=== PATIENT | male | born 1980 | race Native Hawaiian/Other Pacific Islander ===

== ENCOUNTER 2024-12-20 11:19 | Inpatient (IN) | payer SELFPAY ==
[~2024-12-20] VITALS: Ht 182.9 cm; Wt 80.0 kg
--- NOTE | 2024-12-20 11:54 | ED.PDOC ---
HPI (NEURO) HPI Comments This is a 44 year old male presenting to the ED with chief complaint of numbness/tingling. Patient reports that he noticed intermittent left arm tingling last week that developed into intermittent left leg tingling a week ago. Patient relays that it has slowly become worse over time and with associated left arm and leg numbness and dizziness. Patient states that his mother has history of multiple strokes in the past, worried that his symptoms could be due to one. Patient denies any chest pain, SOB, headache, N/V, blurred vision, or syncope. Chief Complaint: Left Sided Weakness Time Seen by MD: 11:50 Reviewed Notes: Nurses Notes, Medications, Allergies Information Source: Patient Mode of Arrival: Ambulatory Severity: Moderate Dizziness/Weakness Severity: Unable to do activities Timing: Weeks Duration: Since onset Prehospital treatment: None Headache Location: Generalized Numbness Location: (L) Arm, (L) Leg Onset: At rest Circumstances: Spontaneous History of: None Associated Signs and Symptoms: Numbness Past Medical History PAST MEDICAL HISTORY: Denies Surgical History: Denies all surgeries Family History Family History: Family hx of stroke Social History Smoker: Non-Smoker Alcohol: Denies ETOH Use Drugs: Denies Drug Use Lives In: Home Constitutional: denies: chills, diaphoresis, fatigue, fever, malaise, sweats, weakness, others EENTM: denies: blurred vision, double vision, ear bleeding, ear discharge, ear drainage, ear pain, ear ringing, eye pain, eye redness, hearing loss, mouth pain, mouth swelling, nasal discharge, nose bleeding, nose congestion, nose pain, photophobia, tearing, throat pain, throat swelling, voice changes, others Respiratory: denies: cough, hemoptysis, orthopnea, SOB at rest, shortness of breath, SOB with excertion, stridor, wheezing, others Cardiovascular: denies: chest pain, dizzy spells, diaphoresis, Dyspnea on exe rtion, edema, irregular heart beat, left arm pain, lightheadedness, palpitations, PND, syncope, others Gastrointestinal: denies: abdomen distended, abdominal pain, blood streaked bowels, constipated, diarrhea, dysphagia, difficulty swallowing, hematemesis, melena, nausea, poor appetite, poor fluid intake, rectal bleeding, rectal pain, vomiting, others Genitourinary: denies: burning, dysuria, flank pain, frequency, hematuria, incontinence, penile discharge, penile sore, pain, testicle pain, testicle swelling, urgency, others Neurological: reports: dizziness, numbness, tingling; denies: fainting, headache, left sided numbness, left sided weakness, paresthesia, pre-existing deficit, right sided numbness, right sided weakness, seizure, speech problems, tremors, weakness, others Musculoskeletal: denies: back pain, gout, joint pain, joint swelling, muscle pain, muscle stiffness, neck pain, others Integumetry: denies: bruises, change in color, change in hair/nails, dryness, laceration, lesions, lumps, rash, wounds, others Allergic/Immunocompromised: denies: Difficulty Healing, Frequent Infections, Hives, Itching, others Hematologic/Lymphatic: denies: anemia, blood clots, easy bleeding, easy bruising, swollen glands, others Endocrine: denies: excessive hunger, excessive sweating, excessive thirst, excessive urination, flushing, intolerance to cold, intolerance to heat, unexplained weight gain, unexplained weight loss, others Psychiatric: denies: anxiety, bipolar disorder, depression, hopeless, panic disorder, schizophrenia, sleepless, suicidal, others All Other Systems: Reviewed and Negative Physical Exam General Appearance: No Apparent Distress, Normal HEENT: Normal ENT Inspection, Pharynx Normal, TMs Normal Neck: Full Range of Motion, Non-Tender, Normal, Normal Inspection Respiratory: Chest Non-Tender, Lungs Clear, No Accessory Muscle Use, No Respiratory Distress, Normal Breath Sounds Cardiovascular: No Edema, No JVD, No Murmur, No Gallop, Normal Peripheral Pulses, Regular Rate/Rhythm Breast Exam: Deferred Gastrointestinal: No Organomegaly, Non Tender, No Pulsatile Mass, Normal Bowel Sounds, Soft Genitalia: Deferred Pelvic: Deferred Rectal: Deferred Extremities: No calf tenderness, Normal capillary refill, Normal inspection, Normal range of motion, Non-tender, No pedal edema Musculoskeletal : Apperance: Normal Neurologic: Alert, conduit bender II-XII nml as Tested, No Motor Deficits, Normal Affect, Normal Mood, No Sensory Deficits Cerebellar Function: Normal Reflexes: Normal Skin: Dry, Normal Color, Warm Lymphatic: No Adenopathy Was a procedure done? Was a procedure done?: No Differential Diagnosis (SZ) CVA: CVA, TIA X-Ray, Labs, Meds, VS Vital Signs Date Time Temp Pulse Resp B/P (MAP) Pulse Ox O2 Delivery O2 Flow Rate FiO2 12/20/24 11:23 97.7 86 16 126/88 99 97.7 Lab Test 12/20/24 13:25 12/20/24 12:05 Range/Units Troponin I High Sensitivity < 3 L < 3 L </=54 ng/L White Blood Count 7.2 4.4-10.8 10^3/uL Red Blood Count 4.87 4.5-5.90 10^6/uL Hemoglobin 14.9 13.5-17.5 g/dL Hematocrit 44.0 41.0-53.0 % Mean Corpuscular Volume 90.4 80.0-100.0 fL Mean Corpuscular Hemoglobin 30.6 28.0-32.0 pg Mean Corpuscular Hemoglobin Concent 33.8 32.0-36.0 g/dL Red Cell Distribution Width 14.3 11.8-14.3 % Platelet Count 260 140-450 10^3/uL Mean Platelet Volume 6.6 L 6.9-10.8 fL Neutrophils (%) (Auto) 64.7 37.0-80.0 % Lymphocytes (%) (Auto) 26.6 10.0-50.0 % Monocytes (%) (Auto) 7.3 0.0-12.0 % Eosinophils (%) (Auto) 0.9 0.0-7.0 % Basophils (%) (Auto) 0.5 0.0-2.0 % Neutrophils # (Auto) 4.7 1.6-8.6 10 ^3/uL Lymphocytes # (Auto) 1.9 0.4-5.4 10 ^3/uL Monocytes # (Auto) 0.5 0-1.3 10 ^3/uL Eosinophils # (Auto) 0.1 0-0.8 10 ^3/uL Basophils # (Auto) 0 0-0.2 10 ^3/uL Nucleated Red Blood Cells 0.1 % Sodium Level 143 136-145 mmol/L Potassium Level 3.5 3.5-5.1 mmol/L Chloride Level 107 98-107 mmol/L Carbon Dioxide Level 27 20-31 mmol/L Anion Gap 9 5-15 Blood Urea Nitrogen 9 9-23 mg/dL Creatinine 0.89 0.700-1.30 mg/dL Glomerular Filtration Rate Calc 109 >90 mL/min BUN/Creatinine Ratio 10.1 10.0-20.0 Serum Glucose 96 74-106 mg/dL Calcium Level 9.3 8.7-10.4 mg/dL Time of 1ST Reevaluation: 12:48 Reevaluation 1ST: Unchanged Patient Education/Counseling: Diagnosis, Treatment Family Education/Counseling: No Family Present Departure 1 Departure Time of Disposition: 14:58 (Patient with concern for CVA. Chest x-ray and CT scan was benign. We will get labs are benign. We will admit patient for further workup and expert consultation) Impression: Primary Impression: Left arm weakness Additional Impression: Left leg weakness Disposition: ADMITTED INPATIENT Admit to: Tele Condition: Guarded Critical Care Note Critical Care Time?: No Stability Stability form required: No Heart Score Heart Score: Heart Score Response (Comments) Value History N/A 0 EKG N/A 0 Age N/A 0 Risk Factors N/A 0 Troponin N/A 0 Total 0 I personally scribed for BEBE RANGEL MD ([email or web address]) on 12/20/24 at 11:54. Electronically submitted by Major Cabrera ([email or web address]). BEBE RANGEL MD Dec 20, 2024 11:54
--- NOTE | 2024-12-20 12:21 | DVH ---
EXAM: CT HEAD WITHOUT CONTRAST INDICATION: numbness TECHNIQUE: CT of the head without intravenous contrast. Radiation Dose : 1. Head: CT Dose: CTDI volume is 53.6 mGy. Dose-length product is 968.9 mGy*cm The dose indicators for CT are the volume Computed Tomography (CT) Dose Index (CTDIvol) and the Dose Length Product (DLP), and are measured in units of mGy and mGy-cm, respectively. These indicators are not patient dose, but values generated from the CT scanner acquisition factors. The report includes radiation exposure data for exposures received during this examination. COMPARISON: None FINDINGS: There is no evidence of acute intracranial hemorrhage, extra-axial collection, mass effect, midline shift, herniation or hydrocephalus. The ventricles, sulci and cisterns are age appropriate. The kate-white differentiation is intact. The visualized paranasal sinuses and mastoid air cells are clear. The surrounding soft tissues and osseous structures are unremarkable. IMPRESSION: No acute intracranial abnormality. Radiation optimization: All CT scans at this facility use at least one of these dose optimization techniques: automated exposure control mA and/or kV adjustment per patient size (includes targeted exams where dose is matched to clinical indication) or iterative reconstruction.
--- NOTE | 2024-12-20 12:24 | DVH ---
AP portable chest CLINICAL INDICATION: numbness FINDINGS: Heart size is normal. Aorta tortuous. No infiltrates or effusions. IMPRESSION: 1. No acute disease
[2024-12-20 12:32] LABS: Hematocrit 44.0 % (41.0-53.0); Hemoglobin 14.9 g/dL (13.5-17.5); Mean Corpuscular Hemoglobin 30.6 pg (28.0-32.0); Mean Corpuscular Volume 90.4 fL (80.0-100.0); Nucleated Red Blood Cells % 0.1 %
[2024-12-20 12:34] LABS: Sodium 143 mmol/L (136-145)
[2024-12-20 12:35] LABS: Anion Gap 9 (5-15); Calcium 9.3 mg/dL (8.7-10.4); Carbon Dioxide 27 mmol/L (20-31)
[2024-12-20 12:40] LABS: BUN/Creatinine Ratio 10.1 (10.0-20.0); Blood Urea Nitrogen 9 mg/dL (9-23); Glucose 96 mg/dL (74-106)
[2024-12-20 12:42] LABS: Chloride 107 mmol/L (98-107); Potassium 3.5 mmol/L (3.5-5.1)
[2024-12-20] MEDS ORDERED: NITROGLYCERIN 0.4 MG SL TAB SL PRN (17:00)
[2024-12-20] MEDS ORDERED: ACETAMINOPHEN 325 MG TAB PO PRN (17:00)
[2024-12-20] MEDS ORDERED: ONDANSETRON HCL 4 MG/2 ML VIAL IV PRN (17:00)
[2024-12-20] MEDS ORDERED: HYDROcodone-ACET 5/325MG TAB PO PRN (17:00)
[2024-12-20] MEDS ORDERED: DOCUSATE SOD 100 MG CAP PO PRN (17:00)
--- NOTE | 2024-12-20 17:39 | DVHHP2 ---
History of Present Illness Reason for Visit: left sided numbness/tingling History of Present Illness Franco Cassidy Junior is a 44-year-old male with no significant past medical history, who came to the hospital due to numbness and tingling to his left arm and leg. Patient states this started last Friday with mild intermittent n umbness and tingling in his left arm. Through the week the numbness and tingling progressed to his left leg. He also began experiencing dizziness when turning his head. He came to the hospital today due to the numbness and tingling significantly worsening in his left arm and leg. Patient states he has not been in to see a primary care provider in over 10 years. He also states his Mother had multiple stroke and from a stroke. Past Surgical History: None Smoke: <1 pack per day (Vape) ALCOHOL: none (quite February 2024) Lives: with Family Domestic Violence: Neg Review of Systems Constitutional: No: Fever, Chills, Sweats, Weakness, Malaise, Other Eyes: No: Pain, Vision change, Conjunctivae inflammation, Eyelid inflammation, Other, Redness ENT: No: Ear pain, Ear discharge, Nose pain, Nose discharge, Nose congestion, M outh pain, Mouth swelling, Throat pain, Throat swelling, Other Respiratory: No: Cough, Dry, Shortness of breath, SOB with excertion, Wheezing, Hemoptysis, Pleuritic Pain, Sputum, Wheezing, Other Cardiovascular: No: Chest Pain, Palpitations, Orthopnea, Paroxysmal Noc. Dyspnea, Edema, Lt Headedness, Other Gastrointestinal: No: Nausea, Vomiting, Abdominal Pain, Diarrhea, Constipation, Melena, Hematochezia, Other Genitourinary: No Dysuria, No Frequency, No Incontinence, No Hematuria, No Retention, No Other Musculoskeletal: No: other, neck pain, shoulder pain, arm pain, back pain, hand pain, leg pain, foot pain Skin: No: Rash, Lesions, Jaundice, Bruising, Other Neurological: Numbness (Paresthesia of the left arm and leg), Other (Dizziness when turning head); No: Weakness, Incoordination, Change in speech, Confusion, Seizures Allergies: Coded Allergies: NO KNOWN ALLERGIES (Unverified , 12/20/24) Exam Vital Signs Vital Signs Date Time Temp Pulse Resp B/P (MAP) Pulse Ox O2 Delivery O2 Flow Rate FiO2 11/10/25 15:50 98.0 67 17 112/70 (84) 100 98.0 General Appearance: Alert, Oriented X3, Cooperative, mild distress HEENT: Atraumatic, PERRLA Respiratory: Clear to auscultation, Normal air movement Cardiovascular: Regular rate, Normal S1, Normal S2 Abdominal: Normal bowel sounds, Soft, No tenderness, No hepatospenomegaly Extremities: No clubbing, No cyanosis, No edema, Normal pulses, Other (equal strength in bilateral upper and lower extremities) Skin: No rashes, No breakdown, No significant lesion Neuro: Normal gait, Normal speech, Strength at 5/5 X4 ext Psych/Mental Status: Mental status NL, Mood NL Labs/Xrays Labs Test 12/20/24 15:35 12/20/24 12:05 Range/Units Troponin I High Sensitivity < 3 L </=54 ng/L White Blood Count 7.2 4.4-10.8 10^3/uL Red Blood Count 4.87 4.5-5.90 10^6/uL Hemoglobin 14.9 13.5-17.5 g/dL Hematocrit 44.0 41.0-53.0 % Mean Corpuscular Volume 90.4 80.0-100.0 fL Mean Corpuscular Hemoglobin 30.6 28.0-32.0 pg Mean Corpuscular Hemoglobin Concent 33.8 32.0-36.0 g/dL Red Cell Distribution Width 14.3 11.8-14.3 % Platelet Count 260 140-450 10^3/uL Mean Platelet Volume 6.6 L 6.9-10.8 fL Neutrophils (%) (Auto) 64.7 37.0-80.0 % Lymphocytes (%) (Auto) 26.6 10.0-50.0 % Monocytes (%) (Auto) 7.3 0.0-12.0 % Eosinophils (%) (Auto) 0.9 0.0-7.0 % Basophils (%) (Auto) 0.5 0.0-2.0 % Neutrophils # (Auto) 4.7 1.6-8.6 10 ^3/uL Lymphocytes # (Auto) 1.9 0.4-5.4 10 ^3/uL Monocytes # (Auto) 0.5 0-1.3 10 ^3/uL Eosinophils # (Auto) 0.1 0-0.8 10 ^3/uL Basophils # (Auto) 0 0-0.2 10 ^3/uL Nucleated Red Blood Cells 0.1 % Sodium Level 143 136-145 mmol/L Potassium Level 3.5 3.5-5.1 mmol/L Chloride Level 107 98-107 mmol/L Carbon Dioxide Level 27 20-31 mmol/L Anion Gap 9 5-15 Blood Urea Nitrogen 9 9-23 mg/dL Creatinine 0.89 0.700-1.30 mg/dL Glomerular Filtration Rate Calc 109 >90 mL/min BUN/Creatinine Ratio 10.1 10.0-20.0 Serum Glucose 96 74-106 mg/dL Calcium Level 9.3 8.7-10.4 mg/dL AP portable chest FINDINGS: Heart size is normal. Aorta tortuous. No infiltrates or effusions. IMPRESSION: 1. No acute disease EXAM: CT HEAD WITHOUT CONTRAST FINDINGS: There is no evidence of acute intracranial hemorrhage, extra-axial collection, mass effect, midline shift, herniation or hydrocephalus. The ventricles, sulci and cisterns are age appropriate. The kate-white differentiation is intact. The visualized paranasal sinuses and mastoid air cells are clear. The surrounding soft tissues and osseous structures are unremarkable. IMPRESSION: No acute intracranial abnormality. SEPSIS Sepsis Screen Date sepsis recognized/suspect: Dec 20, 2024 Time Sepsis recognized/suspect: 1123 Recent Procedure: No On Antibiotic Therapy: No Respiratory Rate >20: No Heart Rate >90: No Temp<36 C (96.8 F) or >38.3 C: No SBP <90 or MAP <65 mmHG: No New Acute Mental Status Change: No Is the patient on CPAP, BIPAP,: No Physician Orders Urinalysis (12/20/24 11:48) Chest Portable (12/20/24 11:48) Head Without Contrast (12/20/24 11:48) Electrocardigram (12/20/24 11:48) Electrocardigram (12/20/24 12:48) Electrocardigram (12/20/24 14:48) Admit (12/20/24 16:50) Code Status (12/20/24 16:50) Hydrocodone-Acet 5/325mg Tab ([place] 5/32 (12/20/24 17:00) Ondansetron Hcl (Zofran) (12/20/24 17:00) Docusate Sodium Capsule (Colace Capsule) (12/20/24 17:00) Complete Blood Count (12/21/24 04:00) Comprehensive Metabolic Panel (12/21/24 04:00) Carotid Duplx W Color Dop (12/20/24 16:50) Condition: Serious (12/20/24 16:50) Acetaminophen Tablet (Tylenol Tablet) (12/20/24 17:00) Nitroglycerin Sublingual (Ntrostat Subli (12/20/24 17:00) Morphine Sulfate Injection (12/20/24 17:00) Stat Ekg For Chest Pain (12/20/24 16:50) Notify Of Changes From Base (12/20/24 16:50) Slipcover Cutter For 24 Hours (12/20/24 16:50) Emergency Dysrhythmia Protocol (12/20/24 16:50) Rhythm Strips Once Every Shift (12/20/24 16:50) Oxygen By Nasal Cannula (12/20/24 16:50) * Neurology Consult (12/20/24 16:50) Vital Signs Date Time Temp Pulse Resp B/P (MAP) Pulse Ox O2 Delivery O2 Flow Rate FiO2 12/20/24 15:50 98.0 67 17 112/70 (84) 100 98.0 12/20/24 11:23 97.7 86 16 126/88 99 97.7 Laboratory Tests Test 12/20/24 12:05 White Blood Count 7.2 10^3/uL (4.4-10.8) Assessment/Plan Assessment/Plan Assessment: Possible stroke, Possible TIA, Paresthesia of the left arm and leg, Plan: Admit to Tele, Neurology consult, Consider MRI of brain, CT of cervical neck, Start ASA, Lipid panel, Plan discussed with: Patient My Orders Orders - ABHINAV VARGAS Procedure Category Date Status Time Admit ADMIT 12/20/24 Transmitted 16:50 Code Status CODE 12/20/24 Transmitted 16:50 Hydrocodone-Acet PHA 12/20/24 Transmitted 5/325mg Tab ([place] 17:00 Ondansetron Hcl PHA 12/20/24 Transmitted (Zofran) 17:00 Docusate Sodium PHA 12/20/24 Transmitted Capsule (Colace 17:00 Complete Blood Count LAB 12/21/24 Verified 04:00 Comprehensive LAB 12/21/24 Verified Metabolic Panel 04:00 Carotid Duplx W Color US 12/20/24 Transmitted DOP 16:50 Condition: Serious [facility] 12/20/24 Transmitted 16:50 Acetaminophen Tablet [facility] 12/20/24 Transmitted (Tylenol Tablet) 17:00 Nitroglycerin [facility] 12/20/24 Verified Sublingual (Ntrostat 17:00 Morphine Sulfate PHA 12/20/24 Transmitted Injection 17:00 Stat Ekg For Chest [facility] 12/20/24 Transmitted Pain 16:50 Notify Of Changes [facility] 12/20/24 Transmitted From Base 16:50 Slipcover Cutter For [facility] 12/20/24 Transmitted 24 Hours 16:50 Emergency Dysrhythmia [facility] 12/20/24 Transmitted Protocol 16:50 Rhythm Strips Once [facility] 12/20/24 Transmitted Every Shift 16:50 Oxygen By Nasal RT 12/20/24 Transmitted Cannula 16:50 * Neurology Consult CONS 12/20/24 Transmitted 16:50 Date of Service: Dec 20, 2024 Billing Provider: ABHINAV VARGAS Common Visit Codes: [id number] INP/OBS CARE (MOD) ABHINAV VARGAS Dec 20, 2024 17:39
[2024-12-20] MEDS ORDERED: MORPHINE SULFATE 4 MG/ML SYR/VIAL IV PRN (18:00)
[2024-12-20 18:24] LABS: Triglycerides 83 mg/dL (< 150)
[2024-12-20 18:26] LABS: Cholesterol 158 mg/dL (< 200); HDL Cholesterol 49 mg/dL (40-59)
--- NOTE | 2024-12-20 18:51 | DVH ---
Carotid Duplex Date: 12/20/2024 06:13 PM Clinical History: Possible stroke Comparison: None Technique: Duplex Doppler evaluation of the extracranial carotid and vertebral arteries including color Doppler and spectral/pulsed waveform analysis was performed. Findings: velocites are within normal limits IMPRESSION: No hemodynamically significant stenosis noted in the right carotid system. No hemodynamically significant stenosis noted in the left carotid system. Reference: Radiology 2003; [id number]
--- NOTE | 2024-12-20 20:54 | DVHINCON2 ---
Date of service: Dec 20, 2024 Referring Physician Sandi Reason for Consultation Possible stroke History of Present Illness Mr. Cassidy is a 44 years old right-handed gentleman otherwise healthy, the patient came to the hospital with a chief company of intermittent of numbness. At this time, he is alert and fully oriented, he provided the following history Since beginning of 12/20/2024, he has several spells of event in that he has numbness starting in the left brachium, which gradually spread towards distally and in about 1 hour, reach the whole hand and all the fingers. Today he had one event that spread to the left thigh, and then the whole lower extremity into the foot in about 30-40 minutes. There was no associated confusion, twitching/movement symptoms along with the numbness. He denies a history of seizure, stroke, he denies a history of traumatic brain injury, intracranial infection, or family history of seizure disorder CBC, 12/20/2024: Unremarkable BMP 12/20/2024: Unremarkable TG/HDL/LDL/HDL, 12/20/2024: 83/158/103/49 Carotid Doppler, 12/20/2024: No hemodynamically significant stenosis noted in the right carotid system. No hemodynamically significant stenosis noted in the left carotid system. CT head, 12/20/2024: No acute intracranial abnormality Past Medical History No major medical problems Past Surgical History No surgeries Family History Stroke Social History He was tobacco smoke, but no history of drug/alcohol abuse Allergies: Coded Allergies: NO KNOWN ALLERGIES (Unverified , 12/20/24) Current Medications Current Medications Medications (Trade) Dose Ordered Sig/Yu Route PRN Reason Start Time Stop Time Status Last Admin Acetaminophen/ Hydrocodone Bitart ([place] 5/325MG Tab) 1 tab Q4HP PRN PO MODERATE PAIN (4-6 PAIN SCALE) 12/20/24 17:00 Ondansetron HCl (Zofran) 4 mg Q4HP PRN IV NAUSEA / VOMITING 12/20/24 17:00 Docusate Sodium (Colace Capsule) 100 mg BIDPRN PRN PO FOR CONSTIPATION 12/20/24 17:00 Acetaminophen (Tylenol Tablet) 650 mg Q6HP PRN PO PAIN SCALE 1-3 OR TEMP>100.4 12/20/24 17:00 Nitroglycerin (Ntrostat Sublingual) 0.4 mg Q5MINP PRN SL FOR CHEST PAIN 12/20/24 17:00 Morphine Sulfate 2 mg Q30M PRN IV FOR CHEST PAIN 12/20/24 18:00 Aspirin 81 mg DAILY PO 12/21/24 10:00 Review of Systems As above, the other systems are negative, he drives, he works Vital Signs Vital Signs Date Time Temp Pulse Resp B/P (MAP) Pulse Ox O2 Delivery O2 Flow Rate FiO2 12/20/24 15:50 98.0 67 17 112/70 (84) 100 98.0 Physical Exam GENERAL EXAM: General: the patient is well developed and nourished. No acute distress. HEENT: Normocephalic, neck is supple, no carotid bruits. No mass. RESPIRATORY: Normal respiratory effort with symmetrical lung expansion. Lungs clear to auscultation. CARDIOVASCULAR: Regular rate and rhythm with no murmurs. S1, S2. ABDOMEN: Soft, nontender, normal bowel sound NEUROLOGICAL: MENTAL STATUS: Awake and alert. Oriented to person, place, time and general circumstances. Able to give personal history. SPEECH, LANGUAGE, HIGHER CORTICAL FUNCTION: no aphasia or dysathria. CRANIAL NERVES: #2: Intact visual brito to confrontation. The optic discs were sharp. #3,4,6: Pupils are equal, round and reactive. EOMs full and conjugate. No nystagmus. #5: Facial sensation intact in all three divisions bilaterally. Mandibular strength intact. #7: Facial muscles symmetrical and strength intact. #8: Hearing grossly normal to voice. #9,10: Uvula and soft palate rise in the midline. Swallow and voice are normal. #11: Trapezius and sternomastoid strength intact bilaterally. #12: Tongue midline. No fasciculations or atrophy. SENSATION: Sensation to touch and pinprick is normal. MOTOR: Normal tone in the upper and lower extremity. Normal muscle bulk. No fasciculations. No abnormal movements or posturing. Muscle strength of the major groups in the upper extremities is 5/5. Muscle strength of the major groups in the lower extremities is 5/5. REFLEXES: Deep tendon reflexes normal and symmetrical. No pathological reflexes. CEREBELLAR/COORDINATION: Finger to nose and heel to harmon are normal bilateral ly. GAIT/STATION: With normal limits Labs/Diagnostic Data Labs Test 12/20/24 15:35 12/20/24 13:25 12/20/24 12:05 Range/Units Troponin I High Sensitivity < 3 L </=54 ng/L Triglycerides Level 83 < 150 mg/dL Cholesterol Level 158 < 200 mg/dL LDL Cholesterol 103 H < 100 mg/dL HDL Cholesterol 49 40-59 mg/dL White Blood Count 7.2 4.4-10.8 10^3/uL Red Blood Count 4.87 4.5-5.90 10^6/uL Hemoglobin 14.9 13.5-17.5 g/dL Hematocrit 44.0 41.0-53.0 % Mean Corpuscular Volume 90.4 80.0-100.0 fL Mean Corpuscular Hemoglobin 30.6 28.0-32.0 pg Mean Corpuscular Hemoglobin Concent 33.8 32.0-36.0 g/dL Red Cell Distribution Width 14.3 11.8-14.3 % Platelet Count 260 140-450 10^3/uL Mean Platelet Volume 6.6 L 6.9-10.8 fL Neutrophils (%) (Auto) 64.7 37.0-80.0 % Lymphocytes (%) (Auto) 26.6 10.0-50.0 % Monocytes (%) (Auto) 7.3 0.0-12.0 % Eosinophils (%) (Auto) 0.9 0.0-7.0 % Basophils (%) (Auto) 0.5 0.0-2.0 % Neutrophils # (Auto) 4.7 1.6-8.6 10 ^3/uL Lymphocytes # (Auto) 1.9 0.4-5.4 10 ^3/uL Monocytes # (Auto) 0.5 0-1.3 10 ^3/uL Eosinophils # (Auto) 0.1 0-0.8 10 ^3/uL Basophils # (Auto) 0 0-0.2 10 ^3/uL Nucleated Red Blood Cells 0.1 % Sodium Level 143 136-145 mmol/L Potassium Level 3.5 3.5-5.1 mmol/L Chloride Level 107 98-107 mmol/L Carbon Dioxide Level 27 20-31 mmol/L Anion Gap 9 5-15 Blood Urea Nitrogen 9 9-23 mg/dL Creatinine 0.89 0.700-1.30 mg/dL Glomerular Filtration Rate Calc 109 >90 mL/min BUN/Creatinine Ratio 10.1 10.0-20.0 Serum Glucose 96 74-106 mg/dL Calcium Level 9.3 8.7-10.4 mg/dL Assessment Paresthesia Rule out partial simple seizure, though with atypical features TIA, less likely Plan/Recommendation Monitoring Supportive treatment Telemetry UDS EEG MR brain scan A trial of Keppra 500 mg b.i.d. He has been advised that he needs to stopped driving if he has altered mental status along with event has convulsion with loss of consciousness I have spent time discussing with him and his Prognosis poor This medical document was created using an electronic medical record system with [employer] dictation system. Although this document has been carefully reviewed, there may still be some phonetic and typographical errors. These areas are purely typographical due to imperfections of the software programs, and do not reflect any compromise in the patient's medical care. Plan discussed with: Patient, Spouse, Other JOEY SALCEDO MD Dec 20, 2024 20:54
[2024-12-20] MEDS ORDERED: LORazepam 2MG/ML-1ML VIAL IV PRN ×2 (22:00)
[2024-12-20 23:35] VITALS: RESP 18
[2024-12-20] MEDS: levETIRAcetam 500 MG TAB PO ONE (23:41)
[2024-12-21] VITALS (9 sets, daily range): BP systolic 94–120; BP diastolic 55–85; PULSE 53–90; RESP 16–20; TEMP 97.6–98; O2SAT 96–100
--- NOTE | 2024-12-21 04:37 | DVH ---
EXAM: CT CERVICAL WITHOUT CONTRAST INDICATION: Paresthesia of the left arm and leg EXAM DATE: 12/21/2024 02:16 AM COMPARISON: None. TECHNIQUE: Multiple axial CT images of the cervical spine were obtained using bone algorithm. Sagittal and coronal reformatting was done. Bone and soft tissue windows were reviewed. Radiation Dose Information: CT Dose: CTDI volume is 6.96 mGy. Dose-length product is 209.05 mGy*cm FINDINGS: The cervical alignment is intact. Reversal of the cervical lordosis. No acute cervical spine fracture is identified. The vertebral body heights are intact. No suspicious osseous lesions are identified. Multilevel intervertebral disc space narrowing. No significant spinal stenosis. Multilevel neural foraminal stenosis. There is no prevertebral soft tissue swelling. The lung apices are clear. IMPRESSION: 1. No evidence of acute cervical spine fracture or traumatic malalignment. 2. Multilevel degenerative changes of the cervical spine.
[2024-12-21 06:41] LABS: Hematocrit 39.6 % (41.0-53.0); Hemoglobin 13.6 g/dL (13.5-17.5); Mean Corpuscular Hemoglobin 30.8 pg (28.0-32.0); Mean Corpuscular Volume 89.8 fL (80.0-100.0); Nucleated Red Blood Cells % 0.1 %
[2024-12-21 06:59] LABS: Alanine Aminotransferase 15 U/L (7-40); Alkaline Phosphatase 59 U/L (46-116); Anion Gap 10 (5-15); BUN/Creatinine Ratio 14.4 (10.0-20.0); Blood Urea Nitrogen 13 mg/dL (9-23); Calcium 9.3 mg/dL (8.7-10.4); Carbon Dioxide 28 mmol/L (20-31); Chloride 106 mmol/L (98-107); Glucose 81 mg/dL (74-106); Potassium 4.0 mmol/L (3.5-5.1); Sodium 144 mmol/L (136-145); Total Protein 7.0 g/dL (5.7-8.2)
[2024-12-21 07:00] LABS: Albumin 4.2 g/dL (3.2-4.8); Bilirubin, Total 0.6 mg/dL (0.2-1.0)
--- NOTE | 2024-12-21 08:52 | DVHPN2 ---
Progress Note - Dictate Date Seen: Dec 21, 2024 Medical Necessity Reason Pt with a Central, PICC or Fol: No Subjective Mr. Cassidy is a 44 years old right-handed gentleman otherwise healthy, the patient came to the hospital with a chief company of intermittent of numbness. I have seen examined the patient, talked his nurse, he had fine, At this time, he is alert and fully oriented, he provided the following history The case was discussed with Dr. Salcedo, our in-house radiologist CBC, 12/20/2024: Unremarkable BMP 12/20/2024: Unremarkable TG/HDL/LDL/HDL, 12/20/2024: 83/158/103/49 Carotid Doppler, 12/20/2024: No hemodynamically significant stenosis noted in the right carotid system. No hemodynamically significant stenosis noted in the left carotid system. CT head, 12/20/2024: No acute intracranial abnormality MRI head, 12/21/24: 1. No evidence of acute intracranial abnormality. 2. Small areas of hypointense gradient echo signal in the right parietal lobe and adjacent to the atrium of the right lateral ventricle, likely sequela of prior small focal areas of hemorrhage. No evidence of acute hemorrhage on this exam or on the recent CT in these locations. 3. Small foci of FLAIR hyperintense signal in the bilateral frontal lobe subcortical white matter, are nonspecific, may be seen with mild chronic small-vessel ischemic disease, migraine headaches, or other vascular phenomena. Other etiologies, including demyelinating disease would be less likely but not completely excluded in the appropriate clinical setting. 4. Additional findings as described above. (Small thin focus of hypointense gradient echo signal along a right parietal lobe sulcus with concomitant FLAIR hyperintense signal, may be due to hemosiderin deposition from prior Small hemorrhage) vital signs Vital Sign Date Time Temp Pulse Resp B/P (MAP) Pulse Ox O2 Delivery O2 Flow Rate FiO2 12/21/24 05:00 97.7 63 19 94/55 (68) 99 97.7 12/21/24 01:18 Room Air* 0 21 medications Current Medications Medications Dose Ordered Sig/Yu Route Start Time Stop Time Status Last Admin Dose Admin Acetaminophen/ Hydrocodone Bitart 1 tab Q4HP PRN PO 12/20/24 17:00 Ondansetron HCl 4 mg Q4HP PRN IV 12/20/24 17:00 Docusate Sodium 100 mg BIDPRN PRN PO 12/20/24 17:00 Acetaminophen 650 mg Q6HP PRN PO 12/20/24 17:00 Nitroglycerin 0.4 mg Q5MINP PRN SL 12/20/24 17:00 Morphine Sulfate 2 mg Q30M PRN IV 12/20/24 18:00 Aspirin 81 mg DAILY PO 12/21/24 10:00 Lorazepam 1 mg ONCE PRN IV 12/20/24 22:00 Lorazepam 1 mg Q5MINP PRN IV 12/20/24 22:00 Levetiracetam 500 mg BID PO 12/21/24 10:00 objective General: the patient is well developed and nourished. No acute distress. MENTAL STATUS: Awake and alert. Oriented to person, place, time and general circumstances. Able to give personal history. SPEECH, LANGUAGE, HIGHER CORTICAL FUNCTION: no aphasia or dysathria. CRANIAL NERVES: Pupils are equal, round and reactive. EOMs full and conjugate. No nystagmus. Facial sensation intact in all three divisions bilaterally. Mandibular strength intact. Facial muscles symmetrical and strength intact. Tongue midline. No fasciculations or atrophy. SENSATION: Sensation to touch and pinprick is normal. MOTOR: Normal tone in the upper and lower extremity. Normal muscle bulk. No fasciculations. No abnormal movements or posturing. Muscle strength of the major groups in the upper extremities is 5/5. REFLEXES: Deep tendon reflexes normal and symmetrical. No pathological reflexes. CEREBELLAR/COORDINATION: Finger to nose and heel to harmon are normal bilaterally. GAIT/STATION: With normal limits laboratory and microbiology Laboratory Tests 12/21/24 05:22 Test 12/21/24 05:22 Range/Units Serum Glucose 81 74-106 mg/dL Problem List Paresthesia, likely partial simple seizure, though with atypical features Assessment/Plan Monitoring Supportive treatment Telemetry UDS EEG Keppra 500 mg b.i.d. Social service Re: Financial evaluate He has been advised that he needs to stopped driving if he has altered mental status along with event has convulsion with loss of consciousness I have spent time discussing with him and his This medical document was created using an electronic medical record system with [employer] system. Although this document has been carefully reviewed, there may still be some phonetic and typographical errors. These areas are purely typographical due to imperfections of the software programs, and do not reflect any compromise in the patient's medical care. Prognosis poor Plan discussed with: Patient, Other Total Time (mins): 55 JOEY SALCEDO MD Dec 21, 2024 08:52
--- NOTE | 2024-12-21 09:16 | DVH ---
CLINICAL INDICATION: Seizure. Transient ischemic attack. COMPARISON: CT HEAD WITHOUT CONTRAST on DOS: 12/20/24 TECHNIQUE: Multisequence multiplanar MRI images of the brain were obtained without contrast. FINDINGS: No acute infarct or hemorrhage. No mass or midline shift. Small thin focus of hypointense gradient echo signal along a right parietal lobe sulcus with concomitant FLAIR hyperintense signal, may be due to hemosiderin deposition from prior Small hemorrhage. There is also a small round focus of gradient echo hypointense signal adjacent to the atrium of the right lateral ventricle, also possibly sequelae of prior hemorrhage. No evidence of acute hemorrhage. There are a few small foci of T2/FLAIR hyperintense signal in the bilateral frontal lobe subcortical white matter measuring up to 3 mm, may be due to mild chronic small-vessel ischemic disease, migraine headaches, or other vascular phenomena. Ventricles and sulci are within normal limits. Basal cisterns are patent. Cerebellum, brainstem, and midline structures are within normal limits. Mild mucosal thickening of the paranasal sinuses. Orbits are grossly unremarkable. IMPRESSION: 1. No evidence of acute intracranial abnormality. 2. Small areas of hypointense gradient echo signal in the right parietal lobe and adjacent to the atrium of the right lateral ventricle, likely sequela of prior small focal areas of hemorrhage. No evidence of acute hemorrhage on this exam or on the recent CT in these locations. 3. Small foci of FLAIR hyperintense signal in the bilateral frontal lobe subcortical white matter, are nonspecific, may be seen with mild chronic small- vessel ischemic disease, migraine headaches, or other vascular phenomena. Other etiologies, including demyelinating disease would be less likely but not completely excluded in the appropriate clinical setting. 4. Additional findings as described above.
[2024-12-21 10:01] LABS: Urine Protein, UAD Negative (Negative)
[2024-12-21] MEDS: levETIRAcetam 500 MG TAB PO SCH (10:42)
--- NOTE | 2024-12-21 16:53 | DVHPN2 ---
Subjective Overnight events noted patient is here for left sided numbness ruled out for acute CVA possibly partial simple seizure. Patient also complaining of loss of appetite loss of weight about 70 lb in last few months. Changes from previous H/P or p: No Changes Eyes: No Pain, No Vision change, No Conjunctivae inflammation, No Eyelid inflammation, No Other, No Redness ENT: No Ear pain, No Ear discharge, No Nose pain, No Nose discharge, No Nose congestion, No Mouth pain, No Mouth swelling, No Throat pain, No Throat swelling, No Other Cardiovascular: No Chest Pain, No Palpitations, No Orthopnea, No Paroxysmal Noc. Dyspnea, No Edema, No Lt Headedness, No Other Respiratory: No Cough, No Dry, No Shortness of breath, No SOB with excertion, No Wheezing, No Hemoptysis, No Pleuritic Pain, No Sputum, No Other Gastrointestinal: No Nausea, No Vomiting, No Abdominal Pain, No Diarrhea, No Constipation, No Melena, No Hematochezia, No Other Genitourinary: No Dysuria, No Frequency, No Incontinence, No Hematuria, No Retention, No Other Musculoskeletal: No other, No neck pain, No shoulder pain, No arm pain, No back pain, No hand pain, No leg pain, No foot pain Skin: No Rash, No Lesions, No Jaundice, No Bruising, No Other Objective Vitals Vital Signs Date Time Temp Pulse Resp B/P (MAP) Pulse Ox O2 Delivery O2 Flow Rate FiO2 12/21/24 13:00 98.0 53 17 100/72 (81) 100 98.0 12/21/24 01:18 Room Air* 0 21 Exam HEENT pupils are reactive Neck is supple CV is S1-S2 regular rate and rhythm Respiratory diminished breath sounds bases GI positive bowel sound Extremity no edema [employer] no motor deficit Medications Current Medications Medications Dose Ordered Sig/Yu Route Start Time Stop Time Status Last Admin Dose Admin Acetaminophen/ Hydrocodone Bitart 1 tab Q4HP PRN PO 12/20/24 17:00 Ondansetron HCl 4 mg Q4HP PRN IV 12/20/24 17:00 Docusate Sodium 100 mg BIDPRN PRN PO 12/20/24 17:00 Acetaminophen 650 mg Q6HP PRN PO 12/20/24 17:00 Nitroglycerin 0.4 mg Q5MINP PRN SL 12/20/24 17:00 Morphine Sulfate 2 mg Q30M PRN IV 12/20/24 18:00 Aspirin 81 mg DAILY PO 12/21/24 10:00 12/21/24 10:42 81 MG Lorazepam 1 mg ONCE PRN IV 12/20/24 22:00 Lorazepam 1 mg Q5MINP PRN IV 12/20/24 22:00 Levetiracetam 500 mg BID PO 12/21/24 10:00 12/21/24 10:42 500 MG Laboratory Results Laboratory Tests 12/21/24 05:22 Chemistry Test 12/21/24 05:22 Albumin 4.2 g/dL (3.2-4.8) Calcium Level 9.3 mg/dL (8.7-10.4) Total Protein 7.0 g/dL (5.7-8.2) LFT Test 12/21/24 05:22 Alanine Aminotransferase (ALT) 15 U/L (7-40) Alkaline Phosphatase 59 U/L (46-116) Aspartate Amino Transferase (AST) 25 U/L (13-40) Total Bilirubin 0.6 mg/dL (0.2-1.0) HgA1c, TSH Test 12/21/24 05:22 Thyroid Stimulating Hormone (TSH) 1.40 uIU/mL (0.55-4.78) Urinalysis Test 12/20/24 08:45 Urine Color Yellow (Yellow) Urine Clarity Clear (Clear) Urine pH 6.0 (5.0-9.0) Urine Specific Mary D 1.026 (1.001-1.035) Urine Protein Negative (Negative) Urine Ketones Negative (Negative) Urine Blood Negative /uL (Negative) Urine Nitrite Negative (Negative) Urine Bilirubin Negative (Negative) Urine Urobilinogen Normal mg/dL (Negative) Urine Leukocyte Esterase Negative /uL (Negative) Urine RBC 1 /hpf (0 - 3) Urine Microscopic WBC 12 /HPF (0-3) H Urine Squamous Epithelial Cells None seen /hpf (<5) Urine Bacteria None seen /hpf (None Seen) Urine Mucus Few (None Seen) Urine Glucose Normal mg/dL (Normal) Assessment/Plan Assessment/Plan 44-year-old male with a no significant past medical history except tobacco use disorder presented to the hospital with a left upper extremity left lower extremity numbness on and off for last one week found to have 1. Left upper extremity and left lower extremity numbness ruled out for acute CVA suspected TIA 2. Rule out partial simple seizures 3. Loss of appetite loss of weight rule out underlying malignancy -appreciate neurology recommendations, continue Keppra, check TSH, PSA, CT chest abdomen and pelvis to rule out any mass. -plan of care discussed with the patient patient's other family member at bedside they understand verbalized understanding and agreeable to plan. Plan discussed with: Patient, Spouse My Orders Orders - EMERALD MURPHY MD Procedure Category Date Status Time Chest Without Contrast CT 12/21/24 Logged 15:55 Psa Total+% Free LAB 12/21/24 In Process 15:55 Chst Ab Pel Wo Con-No CT 12/21/24 Taken Iv/Oral 15:55 Problem List: (1) Left leg weakness (2) Left arm weakness Date of Service: Dec 21, 2024 Billing Provider: EMERALD MURPHY MD Common Visit Codes: [id number] INP/OBS CARE(HIGH) EMERALD MURPHY MD Dec 21, 2024 16:53
--- NOTE | 2024-12-21 17:02 | DVH ---
CLINICAL HISTORY: Loss of weight loss of appetite TECHNIQUE: CT of the chest, abdomen, and pelvis was performed with IV contrast. Coronal and sagittal reformatted images were performed for better depiction of the anatomy. This exam was performed according to our departmental dose optimization program. Up-to-date CT equipment and radiation dose reduction techniques are utilized as appropriate. CTDI 7 DLP 474 COMPARISON: None FINDINGS: CHEST: The thoracic aorta is normal in course and caliber. There are no significant atherosclerotic calcifications. The heart is normal in size. There are LAD and right coronary artery calcifications. No pericardial effusion is seen. No enlarged mediastinal, hilar, or axillary lymph node is present. The central airways are patent. There is no bronchiectasis. There is no suspicious pulmonary nodule or area of consolidation. There is no pleural effusion present. ABDOMEN/PELVIS: The kidneys, adrenal glands, spleen, pancreas, gallbladder, liver, bladder, and prostate gland The abdominal aorta is normal in course and caliber. There are minimal aortic atherosclerotic calcifications. There is no free intraperitoneal air or fluid. There is no enlarged abdominal or pelvic lymph node. There is no bowel wall thickening or dilatation. The appendix is normal. BONES: No acute osseous abnormality is evident. IMPRESSION: No CT explanation for patient's abnormal weight loss. LAD and right coronary artery calcifications, advanced for patient age. Further workup recommended.
[2024-12-22 01:00] VITALS: BP 102/67; PULSE 62; RESP 18; TEMP 98.2; O2SAT 98
[2024-12-22 05:00] VITALS: BP 110/77; PULSE 57; RESP 18; TEMP 97.9; O2SAT 99
[2024-12-22 08:00] VITALS: PULSE 56; PULSE 84; RESP 17; O2SAT 97
[2024-12-22 08:07] LABS: Prostate Specific Antigen 6.8 ng/mL (0.0-4.0)
[2024-12-22 08:35] VITALS: BP 116/84; PULSE 64; RESP 16; TEMP 98; O2SAT 99
--- NOTE | 2024-12-22 10:36 | DVHPN2 ---
Progress Note - Dictate Date Seen: Dec 22, 2024 Medical Necessity Reason Pt with a Central, PICC or Fol: No Subjective Mr. Cassidy is a 44 years old right-handed gentleman otherwise healthy, the patient came to the hospital with a chief company of intermittent of numbness. I have seen examined the patient, talked his nurse, his is in the room, he is doing fine, alert and fully oriented, no new complaints CBC, 12/20/2024: Unremarkable BMP 12/20/2024: Unremarkable TG/HDL/LDL/HDL, 12/20/2024: 83/158/103/49 EEG, 12/22/2024: Normal Carotid Doppler, 12/20/2024: No hemodynamically significant stenosis noted in the right carotid system. No hemodynamically significant stenosis noted in the left carotid system. CT head, 12/20/2024: No acute intracranial abnormality MRI head, 12/21/24: 1. No evidence of acute intracranial abnormality. 2. Small areas of hypointense gradient echo signal in the right parietal lobe and adjacent to the atrium of the right lateral ventricle, likely sequela of prior small focal areas of hemorrhage. No evidence of acute hemorrhage on this exam or on the recent CT in these locations. 3. Small foci of FLAIR hyperintense signal in the bilateral frontal lobe subcortical white matter, are nonspecific, may be seen with mild chronic small-vessel ischemic disease, migraine headaches, or other vascular phenomena. Other etiologies, including demyelinating disease would be less likely but not completely excluded in the appropriate clinical setting. 4. Additional findings as described above. (Small thin focus of hypointense gradient echo signal along a right parietal lobe sulcus with concomitant FLAIR hyperintense signal, may be due to hemosiderin deposition from prior Small hemorrhage) vital signs Vital Sign Date Time Temp Pulse Resp B/P (MAP) Pulse Ox O2 Delivery O2 Flow Rate FiO2 12/22/24 08:35 98.0 64 16 116/84 (95) 99 98.0 12/22/24 08:00 Room Air* 0 21 Total Intake and Output 12/21/24 12/21/24 12/22/24 15:00 23:00 07:00 Intake Total 800 ml 400 ml Balance 800 ml 400 ml medications Current Medications Medications Dose Ordered Sig/Yu Route Start Time Stop Time Status Last Admin Dose Admin Acetaminophen/ Hydrocodone Bitart 1 tab Q4HP PRN PO 12/20/24 17:00 Ondansetron HCl 4 mg Q4HP PRN IV 12/20/24 17:00 Docusate Sodium 100 mg BIDPRN PRN PO 12/20/24 17:00 Acetaminophen 650 mg Q6HP PRN PO 12/20/24 17:00 Nitroglycerin 0.4 mg Q5MINP PRN SL 12/20/24 17:00 Morphine Sulfate 2 mg Q30M PRN IV 12/20/24 18:00 Aspirin 81 mg DAILY PO 12/21/24 10:00 12/22/24 09:08 81 MG Lorazepam 1 mg ONCE PRN IV 12/20/24 22:00 Lorazepam 1 mg Q5MINP PRN IV 12/20/24 22:00 Levetiracetam 500 mg BID PO 12/21/24 10:00 12/22/24 09:08 500 MG objective General: the patient is well developed and nourished. No acute distress. MENTAL STATUS: Awake and alert. Oriented to person, place, time and general circumstances. Able to give personal history. SPEECH, LANGUAGE, HIGHER CORTICAL FUNCTION: no aphasia or dysathria. CRANIAL NERVES: Pupils are equal, round and reactive. EOMs full and conjugate. No nystagmus. Facial sensation intact in all three divisions bilaterally. Mandibular strength intact. Facial muscles symmetrical and strength intact. Tongue midline. No fasciculations or atrophy. SENSATION: Sensation to touch and pinprick is normal. MOTOR: Normal tone in the upper and lower extremity. Normal muscle bulk. No fasciculations. No abnormal movements or posturing. Muscle strength of the major groups in the upper extremities is 5/5. REFLEXES: Deep tendon reflexes normal and symmetrical. No pathological reflexes. CEREBELLAR/COORDINATION: Finger to nose and heel to harmon are normal bilaterally. GAIT/STATION: With normal limits laboratory and microbiology Laboratory Tests 12/21/24 05:22 Test 12/21/24 05:22 Range/Units Serum Glucose 81 74-106 mg/dL Problem List Paresthesia, likely partial simple seizure, though with atypical features Assessment/Plan Monitoring Supportive treatment Telemetry UDS Keppra 500 mg b.i.d. Social service Re: Financial evaluate He has been advised that he needs to stopped driving if he has altered mental status along with event has convulsion with loss of consciousness Okay to discharge from a neurologic point new This medical document was created using an electronic medical record system with [employer] computerized dictation system. Although this document has been carefully reviewed, there may still be some phonetic and typographical errors. These areas are purely typographical due to imperfections of the software programs, and do not reflect any compromise in the patient's medical care. Plan discussed with: Patient, Spouse, Other JOEY SALCEDO MD Dec 22, 2024 10:36
--- NOTE | 2024-12-22 10:48 | DVHEEG2 ---
Neurology EEG Procedural Note Procedural Note EXAM DATE: 12/21/2024 REFERRING DOCTOR: Dr. Salcedo TECHNIQUE: Eighteen channels of EEG, 2 channels of EOG, and 1 channel of EKG were recorded using the [employer] 10/20 system. CLINICAL DATA: The patient was referred for an EEG evaluation for the evidence of seizure disorder. MEDICATIONS: See the chart BACKGROUND ACTIVITY: While the patient was awake, the background activity consisted of well regulated 9 Hz rhythmic waveforms, symmetrically distributed over both posterior quadrants and was reactive to eye opening. ACTIVATION: Hyperventilation: Not done Photic Stimulation: No photic convulsive response Sleep: Noticed IMPRESSION: This is a normal EEG. No focal, lateralized, or epileptiform features are noted. If clinically indicated to rule out a seizure disorder, recommend repeat EEG with sleep deprivation. The EKG channel showed a regular heart rate of 54/[place] [address] JOEY SALCEDO MD Dec 22, 2024 10:48
[2024-12-22 12:51] VITALS: BP 110/72; PULSE 71; RESP 17; TEMP 98.2; O2SAT 99
[2024-12-22] MEDS ORDERED: KEP500T PO (14:07)
--- NOTE | 2024-12-22 14:09 | DVHDS2 ---
Discharge Summary Date of Admission Dec 20, 2024 at 16:50 Date of Discharge: Dec 22, 2024 Labs/Diagnostic Data: Laboratory Results Test 12/21/24 17:07 12/21/24 05:22 12/20/24 15:35 12/20/24 13:25 Free Prostate Specific Antigen 0.84 ng/mL (N/A) Percent Free Prostate Specific Ag 12.4 % (.) Prostate Specific Antigen Total 6.8 ng/mL (0.0-4.0) White Blood Count 5.5 10^3/uL (4.4-10.8) Red Blood Count 4.41 10^6/uL (4.5-5.90) Hemoglobin 13.6 g/dL (13.5-17.5) Hematocrit 39.6 % (41.0-53.0) Mean Corpuscular Volume 89.8 fL (80.0-100.0) Mean Corpuscular Hemoglobin 30.8 pg (28.0-32.0) Mean Corpuscular Hemoglobin Concent 34.3 g/dL (32.0-36.0) Red Cell Distribution Width 14.3 % (11.8-14.3) Platelet Count 233 10^3/uL (140-450) Mean Platelet Volume 6.8 fL (6.9-10.8) Neutrophils (%) (Auto) 42.6 % (37.0-80.0) Lymphocytes (%) (Auto) 42.8 % (10.0-50.0) Monocytes (%) (Auto) 9.9 % (0.0-12.0) Eosinophils (%) (Auto) 3.7 % (0.0-7.0) Basophils (%) (Auto) 1.0 % (0.0-2.0) Neutrophils # (Auto) 2.4 10 ^3/uL (1.6-8.6) Lymphocytes # (Auto) 2.4 10 ^3/uL (0.4-5.4) Monocytes # (Auto) 0.5 10 ^3/uL (0-1.3) Eosinophils # (Auto) 0.2 10 ^3/uL (0-0.8) Basophils # (Auto) 0.1 10 ^3/uL (0-0.2) Nucleated Red Blood Cells 0.1 % Sodium Level 144 mmol/L (136-145) Potassium Level 4.0 mmol/L (3.5-5.1) Chloride Level 106 mmol/L (98-107) Carbon Dioxide Level 28 mmol/L (20-31) Anion Gap 10 (5-15) Blood Urea Nitrogen 13 mg/dL (9-23) Creatinine 0.90 mg/dL (0.700-1.30) Glomerular Filtration Rate Calc 109 mL/min (>90) BUN/Creatinine Ratio 14.4 (10.0-20.0) Serum Glucose 81 mg/dL (74-106) Calcium Level 9.3 mg/dL (8.7-10.4) Total Bilirubin 0.6 mg/dL (0.2-1.0) Aspartate Amino Transferase (AST) 25 U/L (13-40) Alanine Aminotransferase (ALT) 15 U/L (7-40) Alkaline Phosphatase 59 U/L (46-116) Total Protein 7.0 g/dL (5.7-8.2) Albumin 4.2 g/dL (3.2-4.8) Carcinoembryonic Antigen 2.17 ng/mL (<=5.0) Thyroid Stimulating Hormone (TSH) 1.40 uIU/mL (0.55-4.78) Troponin I High Sensitivity < 3 ng/L (</=54) Triglycerides Level 83 mg/dL (< 150) Cholesterol Level 158 mg/dL (< 200) LDL Cholesterol 103 mg/dL (< 100) HDL Cholesterol 49 mg/dL (40-59) Test 12/20/24 08:45 Urine Color Yellow (Yellow) Urine Clarity Clear (Clear) Urine pH 6.0 (5.0-9.0) Urine Specific [place] 1.026 (1.001-1.035) Urine Protein Negative (Negative) Urine Ketones Negative (Negative) Urine Blood Negative /uL (Negative) Urine Nitrite Negative (Negative) Urine Bilirubin Negative (Negative) Urine Urobilinogen Normal mg/dL (Negative) Urine Leukocyte Esterase Negative /uL (Negative) Urine RBC 1 /hpf (0 - 3) Urine Microscopic WBC 12 /HPF (0-3) Urine Squamous Epithelial Cells None seen /hpf (<5) Urine Bacteria None seen /hpf (None Seen) Urine Mucus Few (None Seen) Urine Glucose Normal mg/dL (Normal) Other Laboratory Tests 12/21/24 05:22 Brief Hx & Hospital Course: 44-year-old male with a no significant past medical history except tobacco use disorder presented to the hospital with a left upper extremity left lower extremity numbness on and off for last one week found to have suspected TIA ruled out acute CVA. Patient's MRI brain shows no evidence of any acute stroke. Patient has complained of loss of appetite loss of weight eventually renae CT chest abdominal pelvis was done which shows no evidence of any mass. Patient's was labeled as partial simple seizures and started on Keppra as per Neurology Dr. Olguin. Patient's status is being discharged under stable condition please follow up with the PCP for outpatient malignancy/cancer workup as you are losing appetite losing weight remind need colonoscopy. Patient and patient's was explained this in detail they understand verbalized the understanding and agreeable to plan. Condition at Discharge: Stable Final Diagnosis/Problems List 44-year-old male with a no significant past medical history except tobacco use disorder presented to the hospital with a left upper extremity left lower extremity numbness on and off for last one week found to have 1. Left upper extremity and left lower extremity numbness ruled out for acute CVA suspected TIA 2. Rule out partial simple seizures 3. Loss of appetite loss of weight rule out underlying malignancy Discharge Disposition: Home SNF Discharge Will this Physician continue t: No Discharge Instruct/Medications Diet: Cardiac 2g Na,low cholest Activity: See Comment Activity comment: No driving as you are on seizure medications now Follow Up/Referral: Follow up with the PCP in one week Follow up with Dr. Olguin in 1-2 weeks Medications: Keppra as prescribed. New Medications: Levetiracetam (Keppra Tablet) 500 Mg Tb 500 MG PO BID for 30 Days, #60 TAB Scheduled Levetiracetam (Keppra Tablet), 500 MG PO BID Discharge Statement: "Patient was advised to return to the ER or call 911 if any headaches, dizziness, shortness of breath, chest pain, abdominal pain, bleeding, fevers, or worsening of medical condition. Patient was counseled about treatment plan, medications, possible side effects, patientverbalized understanding. All questions were answered to the best of my ability. This discharge took greater then 30 minutes in planning, reviewing documentation, counseling the patient, and discussing with other team members." ASSESSMENT ASSESSMENT Assessment 44-year-old male with a no significant past medical history except tobacco use disorder presented to the hospital with a left upper extremity left lower extremity numbness on and off for last one week found to have 1. Left upper extremity and left lower extremity numbness ruled out for acute CVA suspected TIA 2. Rule out partial simple seizures 3. Loss of appetite loss of weight rule out underlying malignancy Date of Service: Dec 22, 2024 Billing Provider: EMERALD MURPHY MD Common Visit Codes: 87473-YJD/OBS DISCH DAY >30min EMERALD MURPHY MD Dec 22, 2024 14:09
[2024-12-22 16:00] VITALS: PULSE 56
== END 2024-12-22 16:30 | disposition home or self-care (01) | DRG 69 ==
LOC: ER 11:19 → OVERFLOW 16:50 → TELE-CENTR 12-21 23:35
PROVIDERS: ADMIT Internal Medicine; ATTEND Internal Medicine
DX: G45.9 Transient cerebral ischemic attack, unspecified (principal); G40.109 Localization-related (focal) (partial) symptomatic epilepsy and epileptic syndromes with simple partial seizures, not intractable, without status epilepticus; Z82.3 Family history of stroke; Z87.891 Personal history of nicotine dependence
CPT/HCPCS: 36415; 70450; 70551; 71045; 71250; 72125; 74176; 80048; 80053; 80061; 81001; 82378; 84154; 84443; 84484; 85025; 93886; 95819; G0378